=== PATIENT | female | born 2000 | race Caucasian/White ===

== ENCOUNTER → 2020-07-22 18:22 | Outpatient (CLI) | payer OTHER, SELFPAY ==
--- NOTE | 2020-07-22 18:30 | US_ITS ---
HISTORY: VIABILITY LIGHT SPOTTING ADDITIONAL HISTORY: None provided. CLINICAL DATING: LMP 06/05/2020 for sponges 6 weeks 5 days with ANI 03/12/2021 TECHNIQUE: Transvaginal pelvic ultrasound was performed with grayscale, color Doppler and spectral Doppler imaging. COMPARISON: None FINDINGS: Number of images including paperwork: 77 IUP: Single, live intrauterine gestation noted with crown-rump length 0.66 cm corresponding to 6 weeks 4 days estimated gestational age and ANI 03/13/2021. Gestational age by mean sac diameter is concordant. Heart rate 133 bpm. Amniotic fluid volume appears appropriate. Trace subchorionic hemorrhage (images 59/76 and 72/76). UTERUS: Otherwise unremarkable. CERVIX: Unremarkable. OVARIES: Right ovary 3.7 x 1.7 x 2.8 cm. Left ovary 3.1 x 1.8 x 1.5 cm. Flow demonstrated in the ovaries with spectral Doppler evaluation. Right ovarian 1.8 cm corpus luteum. ADNEXA: No mass. FREE FLUID: None. US/Transvaginal w/Preg US IMPRESSION: Single live intrauterine gestation, as detailed. Trace subchorionic hemorrhage. at 2256 Reported and signed by: Naida Napoles MD Electronically Signed: Naida Napoles MD at 22:56 EST Tel , Service support ,
== END ==
LOC: US 18:28
PROVIDERS: PCP Nurse Practitioner Family; Referring Provider Obstetrics & Gynecology; Visit Provider Obstetrics & Gynecology
DX: O20.0 Threatened abortion (principal); Z3A.00 Weeks of gestation of pregnancy not specified
CPT/HCPCS: 36415; 76817; 86850; 86900; 86901

== ENCOUNTER → 2020-08-06 | Outpatient (CLI) | payer OTHER, SELFPAY ==
[2020-08-06 16:04] VITALS: BMI 17.9
[2020-08-06 18:28] LABS: Amphetamine Urine VISTA NEGATIVE (<1000 ng/mL); Barbiturate Urine VISTA NEGATIVE (< 200 ng/mL); Benzodiazepine Urine VISTA NEGATIVE (< 200 ng/mL); Cocaine Urine VISTA NEGATIVE (< 300 ng/mL); Ecstacy Urine VISTA NEGATIVE (< 500 ng/mL); Methadone Urine VISTA NEGATIVE (< 300 ng/mL); PCP Urine VISTA NEGATIVE (< 25 ng/mL); THC Urine VISTA POSITIVE (< 50 ng/mL); Vista UDS pH Range 5
[2020-08-12 20:39] LABS: HPV Reflexed? NOT INDICATED
[2020-09-03 08:46] LABS: Chlamydia By Nucleic Acid AMP POSITIVE; Gonococcus By Nucleic Acid AMP NEGATIVE
== END | disposition home or self-care (01) ==
LOC: LABSPEC 17:21
PROVIDERS: PCP Nurse Practitioner Family; Visit Provider Obstetrics & Gynecology
DX: Z34.90 Encounter for supervision of normal pregnancy, unspecified, unspecified trimester (principal); Z12.4 Encounter for screening for malignant neoplasm of cervix
CPT/HCPCS: 80307; 87086; 87088; 87491; 87591; 88142

== ENCOUNTER → 2020-08-12 10:12 | Outpatient (CLI) | payer OTHER, SELFPAY ==
[2020-08-06 16:04] VITALS: BMI 17.9
[2020-08-12 10:30] VITALS: BP 128/76; PULSE 90; RESP 18; TEMP 36.6; O2SAT 100; BMI 17.9
[2020-08-12] MEDS: Dextrose 5%-Lactated Ringers 1,000 ML 999 ML IV (10:37)
[2020-08-12] MEDS: Ondansetron 4 MG/2 ML Vial IV (10:37)
[2020-08-12 11:57] VITALS: BP 122/72; PULSE 92; RESP 16; TEMP 36.3; O2SAT 99
== END ==
LOC: MEDOUTP 10:13
PROVIDERS: PCP Nurse Practitioner Family; Referring Provider Nurse Practitioner Women's Health; Visit Provider Nurse Practitioner Women's Health
DX: E86.0 Dehydration (principal)
CPT/HCPCS: 96361; 96374; J2405

== ENCOUNTER → 2020-08-13 15:49 | Outpatient (CLI) | payer OTHER, SELFPAY ==
[2020-08-13 15:41] VITALS: BMI 18.6
[2020-08-13 16:18] LABS: Absolute Lymphocyte Count 2.28 X10^3/uL (0.83-4.51); Absolute Neutrophil Count 6.6 X10^3/uL (2.0-7.7); Basophil# 0.02 X10^3/uL; Basophil% 0.2 % (0-1); Eosinophil# 0.02 X10^3/uL; Eosinophils% 0.2 % (0-5); Hematocrit 35.4 % (37-47); Hemoglobin 11.7 g/dL (12.0-15.0); Lymphocyte # 2.28 X10^3/ul (4.0); Lymphocyte % 23.3 % (19-41); Mean Corp Hgb Conc 33.1 g/dL (32-36); Mean Corpuscular Hgb 27.2 pg (27.0-32.0); Mean Corpuscular Volume 82.3 fL (81-99); Mean Platelet Vol. 10.4 fl (6.2-12.0); Monocyte# 0.82 X10^3/uL; Monocyte% 8.4 % (0-10); NRBC Flagged by Analyzer 0 % (0-5); Neutrophil % 67.6 % (47-70); Platelet Count 184 K/mm3 (150-450); RBC Distribution Width CV 13.5 % (11.6-14.6); RBC Distribution Width SD 40.7 fl (35.1-43.9); White Blood Count 9.8 K/mm3 (4.4-11.0)
[2020-08-13 17:00] LABS: Glucose 78 mg/dL (74-106)
[2020-08-13 17:01] LABS: Hemoglobin A1c 5.2 % (3.8-5.6)
[2020-08-14 09:27] LABS: HIV - WCH Non-Reactive (Nonreactive); Hepatitis B Surface Antigen Non-Reactive (Nonreactive); Hepatitis C Antibody Non-Reactive (Nonreactive); Rubella IgG Reactive (Nonreactive)
[2020-08-20 03:02] LABS: Rapid Plasmin Reagin (RPR) NONREACTIVE (NONREACTIVE)
== END ==
PROVIDERS: Obstetrics & Gynecology; PCP Nurse Practitioner Family; Referring Provider Obstetrics & Gynecology; Visit Provider Obstetrics & Gynecology
DX: O99.891 Other specified diseases and conditions complicating pregnancy (principal); Z3A.00 Weeks of gestation of pregnancy not specified; R30.0 Dysuria
CPT/HCPCS: 36415; 82947; 83036; 85025; 86592; 86703; 86762; 86803; 86850; 86900; 86901; 87086; 87340

== ENCOUNTER → 2020-09-01 15:00 | Outpatient (CLI) | payer OTHER, SELFPAY ==
[2020-09-01 14:41] VITALS: BMI 18.6
[2020-09-01 19:29] LABS: Chlamydia Trachomatis by PCR POSITIVE (Negative); Neisserai gonorrhoeae by PCR Negative (Negative); Probe Check PASS; Sample Adequacy Control PASS; Specimen Processing Control PASS
== END ==
LOC: PAVLAB 15:02
PROVIDERS: PCP Nurse Practitioner Family; Referring Provider Nurse Practitioner Women's Health; Visit Provider Nurse Practitioner Women's Health
DX: Z34.81 Encounter for supervision of other normal pregnancy, first trimester (principal)
CPT/HCPCS: 36415; 87491; 87591

== ENCOUNTER 2020-09-15 10:07 | Outpatient (CLI) | payer OTHER, SELFPAY ==
[2020-09-01 14:41] VITALS: BMI 18.6
[2020-09-15 10:20] VITALS: BP 119/53; PULSE 98; RESP 16; TEMP 36.8; O2SAT 100; BMI 18.6
[2020-09-15] MEDS: 0.9% NaCl Peripheral Flush Adult/Peds IV (10:20)
[2020-09-15] MEDS: Dextrose 5%-Lactated Ringers 1,000 ML 999 ML IV (10:20)
[2020-09-15] MEDS: Ondansetron 4 MG/2 ML Vial IV (10:25)
[2020-09-15 11:30] VITALS: BP 110/63; PULSE 90; RESP 16; O2SAT 100
== END 2020-09-15 15:00 ==
LOC: MEDOUTP 10:07
PROVIDERS: PCP Nurse Practitioner Family; Referring Provider Nurse Practitioner Women's Health; Visit Provider Nurse Practitioner Women's Health
DX: E86.0 Dehydration (principal)
CPT/HCPCS: 96361; 96374; A4216; J2405

== ENCOUNTER → 2020-10-02 | Outpatient (CLI) | payer OTHER, SELFPAY ==
[2020-10-02 13:49] VITALS: BMI 19.1
[2020-10-02 19:16] LABS: Chlamydia Trachomatis by PCR Negative (Negative); Neisserai gonorrhoeae by PCR Negative (Negative); Probe Check PASS; Sample Adequacy Control PASS; Specimen Processing Control PASS
== END | disposition home or self-care (01) ==
LOC: LABSPEC 16:15
PROVIDERS: PCP Nurse Practitioner Family; Visit Provider Obstetrics & Gynecology
DX: O98.819 Other maternal infectious and parasitic diseases complicating pregnancy, unspecified trimester (principal); A74.9 Chlamydial infection, unspecified; Z3A.00 Weeks of gestation of pregnancy not specified
CPT/HCPCS: 87491; 87591

== ENCOUNTER 2020-10-09 10:19 | Outpatient (CLI) | payer OTHER, SELFPAY ==
[2020-10-02 13:49] VITALS: BMI 19.1
[2020-10-09 10:45] VITALS: BP 109/64; PULSE 90; RESP 16; TEMP 36.7; O2SAT 98; BMI 19.3
[2020-10-09] MEDS: 0.9% NaCl Peripheral Flush Adult/Peds IV (10:45)
[2020-10-09] MEDS: Dextrose 5%-Lactated Ringers 1,000 ML 999 ML IV (10:50)
[2020-10-09] MEDS: Ondansetron 4 MG/2 ML Vial IV (10:50)
[2020-10-09 12:13] VITALS: BP 105/69; PULSE 89; RESP 16; O2SAT 100
== END 2020-10-09 14:00 | disposition home or self-care (01) ==
LOC: MEDOUTP 10:19
PROVIDERS: PCP Nurse Practitioner Family; Referring Provider Obstetrics & Gynecology; Visit Provider Obstetrics & Gynecology
DX: E86.0 Dehydration (principal)
CPT/HCPCS: 96361; 96374; A4216; J2405

== ENCOUNTER → 2020-11-02 | Outpatient (CLI) | payer OTHER, SELFPAY ==
[2020-11-02 15:07] VITALS: BMI 19.1
[2020-11-02 17:49] LABS: Amphetamine Urine VISTA NEGATIVE (<1000 ng/mL); Barbiturate Urine VISTA NEGATIVE (< 200 ng/mL); Benzodiazepine Urine VISTA NEGATIVE (< 200 ng/mL); Cocaine Urine VISTA NEGATIVE (< 300 ng/mL); Ecstacy Urine VISTA NEGATIVE (< 500 ng/mL); Methadone Urine VISTA NEGATIVE (< 300 ng/mL); PCP Urine VISTA NEGATIVE (< 25 ng/mL); THC Urine VISTA POSITIVE (< 50 ng/mL); Vista UDS pH Range 6
== END | disposition home or self-care (01) ==
LOC: LABSPEC 16:27
PROVIDERS: PCP Nurse Practitioner Family; Referring Provider Nurse Practitioner Women's Health; Visit Provider Nurse Practitioner Women's Health
DX: O99.320 Drug use complicating pregnancy, unspecified trimester (principal); F12.10 Cannabis abuse, uncomplicated; Z3A.00 Weeks of gestation of pregnancy not specified
CPT/HCPCS: 80307

== ENCOUNTER → 2020-11-12 12:12 | Outpatient (CLI) | payer OTHER, SELFPAY ==
[2020-11-12 11:54] VITALS: BMI 19.8
[2020-11-12 13:38] LABS: Glucose Challenge Gest 1H 50g 125 mg/dL (70-140)
[2020-11-12 14:00] LABS: Syphilis Antibodies Non-reactive
== END ==
PROVIDERS: PCP Nurse Practitioner Family; Visit Provider Nurse Practitioner Women's Health
DX: O28.8 Other abnormal findings on antenatal screening of mother (principal); Z3A.22 22 weeks gestation of pregnancy; Z13.1 Encounter for screening for diabetes mellitus
CPT/HCPCS: 36415; 82950; 86780

== ENCOUNTER → 2020-12-18 12:01 | Outpatient (CLI) | payer MEDICAID, SELFPAY ==
[2020-12-18 11:46] VITALS: BMI 19.3
[2020-12-18 12:28] LABS: Absolute Lymphocyte Count 1.49 X10^3/uL (0.83-4.51); Absolute Neutrophil Count 6.7 X10^3/uL (2.0-7.7); Basophil# 0.02 X10^3/uL; Basophil% 0.2 % (0-1); Eosinophil# 0.02 X10^3/uL; Eosinophils% 0.2 % (0-5); Hematocrit 31.9 % (37-47); Hemoglobin 10.2 g/dL (12.0-15.0); Lymphocyte # 1.49 X10^3/ul (0.83-4.51); Lymphocyte % 16.5 % (19-41); Mean Corpuscular Hgb 26.1 pg (27.0-32.0); Mean Corpuscular Volume 81.6 fL (81-99); Mean Platelet Vol. 10.2 fl (6.2-12.0); Monocyte# 0.71 X10^3/uL; Monocyte% 7.9 % (0-10); NRBC Flagged by Analyzer 0 % (0-5); Neutrophil # 6.74 X10^3/uL (2.7-7.7); Neutrophil % 74.6 % (47-70); Platelet Count 176 K/mm3 (150-450); RBC Distribution Width CV 13.5 % (11.6-14.6); RBC Distribution Width SD 39.6 fl (35.1-43.9); Red Blood Count 3.91 M/mm3 (4.2-5.4)
[2020-12-18 12:53] LABS: Glucose Challenge Gest 1H 50g 139 mg/dL (70-140)
== END ==
PROVIDERS: PCP Nurse Practitioner Family; Referring Provider Obstetrics & Gynecology; Visit Provider Obstetrics & Gynecology
DX: O26.892 Other specified pregnancy related conditions, second trimester (principal); Z3A.00 Weeks of gestation of pregnancy not specified
CPT/HCPCS: 36415; 82950; 85025; 86850; 86900; 86901

== ENCOUNTER → 2020-12-23 07:03 | Outpatient (CLI) | payer MEDICAID, SELFPAY ==
[2020-12-18 11:46] VITALS: BMI 19.3
[2020-12-23 08:02] LABS: Glucose GTT-Gestation. Fasting 86 mg/dL (<105)
[2020-12-23 08:43] LABS: Glucose GTT-Gestational 1 Hr 128 mg/dL (<190)
[2020-12-23 09:54] LABS: Glucose GTT-Gestational 2 Hr 110 mg/dL (<165)
[2020-12-23 10:56] LABS: Glucose GTT-Gestational 3 Hr 80 L (<145)
== END ==
PROVIDERS: PCP Nurse Practitioner Family; Referring Provider Obstetrics & Gynecology; Visit Provider Obstetrics & Gynecology
DX: Z34.90 Encounter for supervision of normal pregnancy, unspecified, unspecified trimester (principal)
CPT/HCPCS: 36415; 82951; 82952

== ENCOUNTER → 2021-01-14 | Outpatient (CLI) | payer MEDICAID, SELFPAY ==
[2021-01-14 10:58] VITALS: BMI 19.3
[2021-01-14 15:23] LABS: Amphetamine Urine VISTA NEGATIVE (<1000 ng/mL); Barbiturate Urine VISTA NEGATIVE (< 200 ng/mL); Benzodiazepine Urine VISTA NEGATIVE (< 200 ng/mL); Cocaine Urine VISTA NEGATIVE (< 300 ng/mL); Ecstacy Urine VISTA NEGATIVE (< 500 ng/mL); Methadone Urine VISTA NEGATIVE (< 300 ng/mL); PCP Urine VISTA NEGATIVE (< 25 ng/mL); THC Urine VISTA POSITIVE (< 50 ng/mL); Vista UDS pH Range 6
== END | disposition home or self-care (01) ==
PROVIDERS: PCP Nurse Practitioner Family; Referring Provider Nurse Practitioner Women's Health; Visit Provider Nurse Practitioner Women's Health
DX: O99.323 Drug use complicating pregnancy, third trimester (principal); F12.10 Cannabis abuse, uncomplicated; Z3A.29 29 weeks gestation of pregnancy
CPT/HCPCS: 80307

== ENCOUNTER → 2021-02-05 07:54 | Outpatient (CLI) | payer MEDICAID, SELFPAY ==
[2021-01-29 10:26] VITALS: BMI 19.3
--- NOTE | 2021-02-05 07:55 | US_ITS ---
STUDY: SECOND AND THIRD TRIMESTER OBSTETRICAL ULTRASOUND REASON FOR EXAM: Female, 20 years old uterine date size discrepancy LMP: 06/05/2020. TECHNIQUE: Transabdominal TECHNICAL QUALITY: Adequate. PRIOR ULTRASOUND: Comparison is made with prior study dated 07/22/2020. FINDINGS: There is a single intrauterine fetus. The fetus is in a cephalic presentation. There is demonstrated cardiac activity with a heart rate of 155 bpm. There is a normal amniotic fluid volume. The largest amniotic fluid pocket measures 3.7 cm. The amniotic fluid index (MEGAN) is 8.5 cm. The placenta is fundal in location. There are Grade 2 placental changes. The cervix measures 3 cm in length. The adnexal regions are not visualized. BIOMETRY: BPD: 9.17 cm: 37 weeks, 1 days HC: 32.27 cm: 36 weeks, 3 days AC: 30.14 cm: 34 weeks, 0 days FL: 6.95 cm: 35 weeks, 4 days CI: 86% FL/BPD: 76% FL/HC: FL/AC: 23% HC/AC: 1.07 age by current US: 35 weeks, 3 days. ANI by current US: 03/09/2021. Estimated weight: 2617 grams, +/- 393 grams, 53 %. age by prior US: 34 weeks, 6 days. ANI by prior US: 03/13/2021. Age by LMP: 35 weeks, 0 days. ANI by LMP: 03/12/2021. US/OB Limited With Biometrics IMPRESSION: Single live intrauterine gestation with a mean gestational age of 34 weeks and 6 days. The measurements obtained today fall within normal expected range. Electronically Signed: Babatunde Aleman MD at 9:45 EDT , Service support ,
== END ==
PROVIDERS: PCP Nurse Practitioner Family; Referring Provider Obstetrics & Gynecology; Visit Provider Obstetrics & Gynecology
DX: O26.843 Uterine size-date discrepancy, third trimester (principal)
CPT/HCPCS: 76816

== ENCOUNTER → 2021-02-12 10:33 | Outpatient (CLI) | payer MEDICAID, SELFPAY ==
[2021-01-29 10:26] VITALS: BMI 19.3
[2021-02-12 09:27] VITALS: BMI 19.3
--- NOTE | 2021-02-12 10:35 | US_ITS ---
STUDY: SECOND AND THIRD TRIMESTER OBSTETRICAL ULTRASOUND - LIMITED REASON FOR EXAM: Female, 20 years old check MEGAN LMP: 06/05/2020. PRIOR ULTRASOUND: Comparison is made with prior study dated 02/05/2021. TECHNIQUE: Transabdominal TECHNICAL QUALITY: Adequate. FINDINGS: There is a single intrauterine fetus. The fetus is in a cephalic presentation. There is demonstrated cardiac activity with a heart rate of 150 bpm. There is a normal amniotic fluid volume. The largest amniotic fluid pocket measures 3.9 cm x 4.5 cm. The amniotic fluid index (MEGAN) is 12.2 cm. The placenta is fundal in location. There are Grade 2 placental changes. The cervix measures 3 cm in length. US/OB Limited (No Biometrics) IMPRESSION: Normal amniotic fluid. Electronically Signed: Babatunde Aleman MD at 14:01 EDT , Service support ,
[2021-02-15 05:06] LABS: Chlamydia By Nucleic Acid AMP Negative (Negative)
[2021-02-15 12:39] LABS: Gonococcus By Nucleic Acid AMP Negative (Negative)
== END ==
PROVIDERS: Obstetrics & Gynecology; PCP Nurse Practitioner Family; Referring Provider Obstetrics & Gynecology; Visit Provider Obstetrics & Gynecology
DX: O26.843 Uterine size-date discrepancy, third trimester (principal); Z3A.36 36 weeks gestation of pregnancy; Z11.3 Encounter for screening for infections with a predominantly sexual mode of transmission
CPT/HCPCS: 76815; 87081; 87491; 87591

== ENCOUNTER 2021-03-05 11:13 | Inpatient (IN) | payer MEDICAID, SELFPAY ==
[2021-03-05] VITALS (42 sets, daily range): BP systolic 101–150; BP diastolic 56–99; PULSE 88–145; RESP 16; TEMP 36.5–37.3; O2SAT 83–100; BMI 19.3; BMI 21.3
[2021-03-05] MEDS: Lactated Ringers 1,000 ML 50 ML IV (12:15)
[2021-03-05 12:28] LABS: Absolute Lymphocyte Count 1.42 X10^3/uL (0.83-4.51); Absolute Neutrophil Count 6.9 X10^3/uL (2.0-7.7); Basophil# 0.01 X10^3/uL; Basophil% 0.1 % (0-1); Hematocrit 40.5 % (37-47); Hemoglobin 13.2 g/dL (12.0-15.0); Lymphocyte # 1.42 X10^3/ul (0.83-4.51); Lymphocyte % 15.8 % (19-41); Mean Corp Hgb Conc 32.6 g/dL (32-36); Mean Corpuscular Hgb 27.1 pg (27.0-32.0); Mean Corpuscular Volume 83.2 fL (81-99); Mean Platelet Vol. 10.4 fl (6.2-12.0); Monocyte# 0.64 X10^3/uL; Monocyte% 7.1 % (0-10); NRBC Flagged by Analyzer 0 % (0-5); Neutrophil # 6.89 X10^3/uL (2.7-7.7); Neutrophil % 76.6 % (47-70); Platelet Count 157 K/mm3 (150-450); RBC Distribution Width CV 16.4 % (11.6-14.6); RBC Distribution Width SD 49.8 fl (35.1-43.9); Red Blood Count 4.87 M/mm3 (4.2-5.4)
[2021-03-05] MEDS: Oxytocin 30 units/NS 500 ml 30 UNITS/500 ML IV.SOLN IV (12:45)
[2021-03-05 13:56] LABS: Amphetamine Urine VISTA NEGATIVE (<1000 ng/mL); Barbiturate Urine VISTA NEGATIVE (< 200 ng/mL); Benzodiazepine Urine VISTA NEGATIVE (< 200 ng/mL); Cocaine Urine VISTA NEGATIVE (< 300 ng/mL); Ecstacy Urine VISTA NEGATIVE (< 500 ng/mL); Methadone Urine VISTA NEGATIVE (< 300 ng/mL); PCP Urine VISTA NEGATIVE (< 25 ng/mL); THC Urine VISTA NEGATIVE (< 50 ng/mL); Vista UDS pH Range 6
[2021-03-05] MEDS: Lactated Ringers 500 ML 999 ML IV ×2 (14:43→15:15)
[2021-03-05] MEDS: fentaNYL-bupivacaine (epidural) 100 ML BAG EPIDURAL (15:44)
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
--- NOTE | 2021-03-05 18:17 | OP.PCM_ITS ---
Assessment & Plan (1) Oligohydramnios: (2) : QUALIFIERS: Weeks of gestation: 39 weeks Qualified Code(s): Z3A.39 - 39 weeks gestation of COMMENT: NIPT- low risk male, declines carrier and AFP, NL anatomy scan GBS NEGATIVE (3) Supervision of normal : QUALIFIERS: Normal : normal first Trimester: second trimester Qualified Code(s): Z34.02 - Encounter for supervision of normal first , second trimester COMMENT: PRR ANI 03/12/2021 gianni Russell BF: Davion (4) Rh negative status during : QUALIFIERS: Trimester: second trimester Qualified Code(s): O26.892 - Other specified related conditions, second trimester COMMENT: Had spotting at beginning of , but missed window for RhoGam. Rhogam given 12/18/20 (5) Marijuana abuse: COMMENT: +tox at NOB and 11/02-counseled- needs random tox. 01/14 positive (6) Chlamydia infection affecting : QUALIFIERS: Trimester: second trimester Qualified Code(s): O98.812 - Other maternal infectious and parasitic diseases complicating pre gnancy, second trimester; A74.9 - Chlamydial infection, unspecified COMMENT: + 09/01/20; 10/02 negative (7) Glucosuria: COMMENT: NL 3 hr glucose test (8) Anxiety and depression: COMMENT: zoloft started (9) Anemia: COMMENT: iron supplement (10) Vaginal delivery: COMMENT: SM IOL oligo 39 gianni Russell Maternal Data Information ANI Calculator Estimated Delivery Date Method Current WG Current Estimate 03/12/21 LMP (Certain) 39w 1d Other Estimates 03/12/21 Ultrasound #1 39w 1d Vaginal Delivery Operative Information Date of Procedure: 03/06/21 Pre-Operative Diagnosis: Induction of labor oligohydramnios Post-Operative Diagnosis: same Surgery / Procedure Performed: Spontaneous Vaginal Delivery Type of Anesthesia: Epidural Special Medications: none Estimated Blood Loss: 100 Fluids Replaced: crystalloid Findings Description of Procedure: Patient began pushing and delivered the head in the ANGEL presentation. The head was delivered atraumatically . The anterior and posterior shoulders delivered without complication followed by the rest of the and the was placed on the maternal abdomen. Delayed cord clamping was employed for approximately 60 seconds. Cord was clamped and cut and gentle traction was applied to the cord and the placenta delivered spontaneously immediately following it was noted to be intact with three-vessel cord. The perineum and vagina were inspected and noted to have a small left vaginal first- degree laceration repaired with 3-0 Vicryl Rapide. EBL was 100 cc. Patient and infant tolerated delivery well. Presentation: ANGEL Amniotic Membrane Rupture Type: Artificial Amniotic Fluid Description: Clear Placental Delivery Description: Spontaneous Placenta Disposition: [facility] Cord Vessel Description: 3 Vessels Cord Entanglement: None Infant A Gender: Male Delayed Cord Clamping: Yes Post Vaginal Delivery Medications Given After Delivery: IV Pitocin Episiotomy Description: None Laceration: None Complication Complications: None Procedures Urinary/Genital [id number]: [id number] Vaginal Delivery+ Care([facility])
[2021-03-05] MEDS: Oxytocin 30 units/NS 500 ml 30 UNITS/500 ML IV.SOLN 334 UNITS IV (19:16)
--- NOTE | 2021-03-06 00:22 | PCM.DC ---
Discharge Instructions Diet Discharge Diet: No restrictions Activity Discharge Activity: Return to Normal Activity, May Not Drive (while taking narcotic pain medications.) and May Shower May resume sexual activity in: 4-6 weeks Dressing / Incision Call your doctor if your incision/area has: Continuous Slow Oozing, Sudden Increased Bleeding, Increased Pain/ Swelling, Increased Redness and Foul Smelling Discharge Follow Up Care Please Follow Up With: Viri Fried MD When: Call [phone] to make an appointment with your doctor in 6 weeks. If you had elevated blood pressure or 4th degree laceration, you will need to be seen in 2 weeks. Test Results: Test results from this visit will be discussed in further detail at your follow-up appointment, if applicable. Discharge Plan Admission Admit Date/Time: 03/05/21 11:13 Primary Reason for Your Visit: Vaginal delivery Attending Provider: Viri Fried Primary Care Provider: Aissatou Yost NP Discharge Orders/Prescriptions Prescriptions: New naproxen 250 MG tablet 250 - 500 mg PO Q8H PRN PRN (Reason: MILD PAIN) Qty: 30 RF: 1 Continued PNV-DHA 27 mg iron-1 mg -300 mg capsule 1 cap PO RF: 0 sertraline [Zoloft] 50 mg tablet 50 mg PO DAILY RF: 0 Referrals / Follow Up: Aissatou Yost NP, [employer] [Primary Care Provider] -
[2021-03-06] MEDS: Naproxen 500 MG Tablet PO ×2 (01:52→20:39)
[2021-03-06 04:17] VITALS: BP 135/80; PULSE 108; RESP 16; TEMP 36.3
[2021-03-06 08:23] VITALS: BP 116/70; PULSE 87; RESP 16; TEMP 36.8
[2021-03-06] MEDS: Sertraline 50 MG Tablet PO (08:28)
--- NOTE | 2021-03-06 09:47 | PCM.PN.OB ---
Subjective Subjective Patient doing well without complaints. Tolerating PO. Ambulating and voiding without difficulty. Breast feeding well. Denies chest pain, shortness of breath, calf pain/swelling, fevers, chills, lightheadedness. Objective Data Objective Data Vital Signs: Vital Signs Temp Pulse Resp BP Pulse Ox 98.3 F 87 16 116/70 97 03/06/21 08:23 03/06/21 08:23 03/06/21 08:23 03/06/21 08:23 03/05/21 20:10 Oxygen Delivery Method Room Air Weight: 132 lb Body Mass Index (BMI) 21.3 Intake & Output: Intake and Output for Last 24 Hours 03/04/21 03/05/21 03/06/21 23:59 23:59 23:59 Intake Total 2515.17 / 2515.17 Output Total 900 / 900 400 / 400 Balance 1615.17 / 1615.17 -400 / -400 Lab / Micro Data Result Diagrams: 03/05/21 12:15 Labs: Laboratory Results - last 24 hr 03/05/21 12:15: WBC 9.0, RBC 4.87, Hgb 13.2, Hct 40.5, MCV 83.2, MCH 27.1, MCHC 32.6, RDW Std Deviation 49.8 H, RDW Coeff of Carina 16.4 H, Plt Count 157, MPV 10.4, Immature Gran % (Auto) 0.400, Neut % (Auto) 76.6 H, Lymph % (Auto) 15.8 L, [place] % (Auto) 7.1, Eos % (Auto) 0.0, Baso % (Auto) 0.1, Absolute Neuts (auto) 6.9, Absolute Lymphs (auto) 1.42, Nucleated RBC % 0 03/05/21 12:15: Blood Type O NEGATIVE, Antibody Screen NEGATIVE 03/05/21 13:35: Urine Opiates Screen NEGATIVE, Urine Methadone Screen NEGATIVE, Ur Barbiturates Screen NEGATIVE, Ur Phencyclidine Scrn NEGATIVE, Ur Amphetamines Screen NEGATIVE, U Methamphetamin-MDMA NEGATIVE, U Benzodiazepines Scrn NEGATIVE, Urine Cocaine Screen NEGATIVE, U Cannabinoids Screen NEGATIVE, Ur Drug Screen Comment 03/06/21 04:14: Screen NEGATIVE, Baby's Blood Type A POSITIVE, Baby's KIESHA NEGATIVE Micro: Microbiology 03/05/21 12:15 Mucosa - Nose SARS-CoV-2 Antigen (Rapid) - Final ROS Constitutional Constitutional: Denies fever(s) Cardiovascular Cardiovascular: Denies chest pain, dyspnea or lightheadedness Gastrointestinal Gastrointestinal: Reports abdominal pain; Denies constipation or diarrhea Neurologic Neurologic: Denies dizziness or headache(s) Physical Exam Const alert, oriented x3, no apparent distress, average body habitus, healthy appearing and well nourished HEENT normocephalic Head and Scalp: atraumatic Eyes PERRL and EOMs intact bilaterally Neck full ROM Lymph Lymphatic: no lymphadenopathy noted Resp normal respiratory effort, no retractions and no use of accessory muscles Cardio regular rate GI soft to palpation, non-tender and non-distended Palpation: other Other Details: fundus firm Extremity normal to inspection and no clubbing, cyanosis or edema Skin no rashes or lesions noted Neuro no focal motor deficits and no sensory deficits noted Psych mental status grossly normal, affect normal and speech normal Assessment & Plan (1) Vaginal delivery: COMMENT: IOL oligo 39 boy Drew PLAN: s/p PPD # 1 1. routine post delivery care 2. breast feeding- support given 3. rh positive 4. rubella immune
[2021-03-06 11:12] VITALS: BP 118/58; PULSE 87; RESP 16; TEMP 36.4
[2021-03-06 15:36] VITALS: BP 131/72; PULSE 100; RESP 16; TEMP 36.6
--- NOTE | 2021-03-06 17:51 | CASEMGMT ---
Addendum entered by Jaqueline Sauceda 03/06/21 18:35: Patient/MOB tested positive for marijuana 09/01/20,11/02/20 and 01/14/21during her . Jaqueline MENDEZ Addendum entered by Jaqueline Sauceda 03/06/21 18:35: SW met with patient and FOB. Discussed concerns about marijuana smoke and the dangers to children, especially with RSV. Patient and FOB verbalized understanding. SW provided patient and FOB with information on AOD treatment from [facility]. Patient and FOB indicated that there plan is not to smoke marijuana and this mortgage underwriter educated about dangers of secondhand smoke. SW also provided handout from [facility] on Secondhand smoke and kids. Advised at this time [facility] was not going to take a report but if the mec came back positive. [facility] MAICLO Nava had asked this mortgage underwriter if the screw down will have information about the MOB testing positive during and Nakul Georges RN, said that the screw down will have access to 's chart which document this information. KHADAR Saini, said that patient has also been educated on marijuana use in regards to . No further SW needs at this time. SW remains available. Plan: Home with [facility] Jaqueline MENDEZ Original Note: MAICOL Note SW Referral Source: MD MILIAN referral Reason, History of anxiety and depression, Positive tox screen for marijuana 3x during the . Mom: Akhil Benitez 21 year old EDC 03[birth year] 39 weeks G1 P 1 PNC: [place] control: Control Pill Baby: Drew MEJIA 03/05/21 Apgars 8/9 Weight 6# 9 ounces Pediatrican: [facility]. Appt Monday at 9am per patient Breast feeding for a few weeks and then bottle feed. Mother reports that patient is latching well but reports he likes one breast more than the other and he's being a pain. No other children Housing: Patient, FOB and will reside in a home Transportation: Patient reports that her fiance'/FOB drives but she doesn't as I am too scared. Patient said that she has a car. Supplies: Patient reports she has a baby has a carseat, bassinet (with firm mattress) and pack n play and all supplies. Supports: Patient said that her support will be her mom (who was on the phone with patient while this mortgage underwriter spoke to patient and when this mortgage underwriter noted that patient's mother was on the phone SW asked patient if it was ok to speak in her mothers presence and patient gave consent to speak in the presence of her mother). Patient said that her fiance/FOB, maternal grandmother, paternal grandmother and maternal great grandmother will be available. Patient said that the paternal grandmother resides in [place] and the maternal grandmother and great grandmother reside in [place], [place]. Education Level: Patient reports she graduated from high school and had some learning disabilities. Patient reports no issues with reading and writing. Employment: Patient is not employed. She previously worked at [employer] in [place]. She reports that she plans to obtain a job closer to home. Patient said that when she works her grandmother Mike will watch the . Agency Involvement: Patient is currently linked with Medicaid, Food [place] and WIC FOB: [place] Time Together: 11 months Involved at : FOB will be involved at . He was noted to be in the room with the . Staff noted that FOB was appropriate in caring for the . Employment: Patient works at [employer] FOB has no other children . FOB MH/AOD/Domestic Violence History: Patient reports no history Maternal MH history. Patient reports that she has never had counseling, suicidal ideations or psychiatric hospitalization. She reports she is taking zoloft, which per her chart she started at 30 weeks. Patient said that taking zoloft she is doing good and plans to continue to take the medication. Patient said that she feels she has more depression than anxiety. No current SI. Patient said that she is comfortable taking the home. Patient was educated on Shaken Baby, Post Depression and Safe Sleeping. Patient reports she used marijuana during her but her plan is to quit. Patient reports no continued drug use and was educated on the effects of smoke and drugs around the . On 03/05/21 patient and were negative on their tox screen. Mec is pending. KHADAR Saini stated that patient is doing ok and wants to learn. Father is involved with the and supportive. SW spoke to patient's mother and asked if she had any concerns regarding the and grandmother said she will be a good mom. SW offered FOB and patient a referral to [facility] and they both were in agreement. FOB said we will take all the help we can get. SW called Kallie Nava at [facility]. SW made report. She said that at this time they will screen out the report however, if there is any additional information or concerns to contact them. She said that if the mec comes back positive to contact [facility]. SW made referral to [facility] on line. SW provided patient with handouts on Mom of [place] and Depression, Anxiety and Depression and a contact number, Safe sleep handout, [facility] Handout, Depression During and After Pregancy Handout, On Line Resource for Post Mood and anxiety, 10 facts about Depression and anxiety during and post Republican, List of counseling resources and information on PPD and and Post Depression with symptoms. SW will continue to watch for mec results. Plan: Home with [facility] Referral. [facility] screened out a referral. Jaqueline MENDEZ
[2021-03-06 20:32] VITALS: BP 131/72; PULSE 94; RESP 16; TEMP 36.8
[2021-03-07 02:03] VITALS: BP 120/73; PULSE 78; RESP 16; TEMP 36.6
[2021-03-07 08:00] VITALS: BP 111/61; PULSE 81; RESP 16; TEMP 36.3
[2021-03-07] MEDS: Sertraline 50 MG Tablet PO (08:06)
--- NOTE | 2021-03-07 10:25 | PCM.PN.OB ---
Subjective Subjective Patient doing well without complaints. Tolerating PO. Ambulating and voiding without difficulty. Breast feeding well. Denies chest pain, shortness of breath, calf pain/swelling, fevers, chills, lightheadedness. Objective Data Objective Data Vital Signs: Vital Signs Temp Pulse Resp BP Pulse Ox 97.3 F L 81 16 111/61 97 03/07/21 08:00 03/07/21 08:00 03/07/21 08:00 03/07/21 08:00 03/05/21 20:10 Oxygen Delivery Method Room Air Weight: 132 lb Body Mass Index (BMI) 21.3 Intake & Output: Intake and Output for Last 24 Hours 03/05/21 03/06/21 03/07/21 23:59 23:59 23:59 Intake Total 2515.17 / 2515.17 Output Total 900 / 900 400 / 400 Balance 1615.17 / 1615.17 -400 / -400 Lab / Micro Data Result Diagrams: 03/05/21 12:15 Micro: Microbiology 03/05/21 12:15 Mucosa - Nose SARS-CoV-2 Antigen (Rapid) - Final ROS Constitutional Constitutional: Denies fever(s) Cardiovascular Cardiovascular: Denies chest pain, dyspnea or lightheadedness Gastrointestinal Gastrointestinal: Reports abdominal pain; Denies constipation or diarrhea Neurologic Neurologic: Denies dizziness or headache(s) Physical Exam Const alert, oriented x3, no apparent distress, average body habitus, healthy appearing and well nourished HEENT normocephalic Head and Scalp: atraumatic Eyes PERRL and EOMs intact bilaterally Neck full ROM Lymph Lymphatic: no lymphadenopathy noted Resp normal respiratory effort, no retractions and no use of accessory muscles Cardio regular rate GI soft to palpation, non-tender and non-distended Palpation: other Other Details: fundus firm Extremity normal to inspection and no clubbing, cyanosis or edema Skin no rashes or lesions noted Neuro no focal motor deficits and no sensory deficits noted Psych mental status grossly normal, affect normal and speech normal Assessment & Plan (1) Vaginal delivery: COMMENT: SM IOL oligo 39 boy Drew PLAN: s/p PPD # 2 1. routine post delivery care 2. breast feeding- support given 3. rh positive 4. rubella immune
[2021-03-07 11:58] VITALS: BP 109/71; PULSE 93; RESP 16; TEMP 36.6
--- NOTE | 2021-04-13 10:22 | CASEMGMT ---
MAICOL Note: Referral Source: [employer] Advertising Representative Referral Reason; NB positive for marijuana in meconium MAICOL was advised by email that patient's tox for meconium. MAICOL called [facility] [phone] and spoke to Ilda in intake. MAICOL updated that this tag writer had follow up information that tested positive for marijuana in meconium. Ilda advised she would follow up to appropriate individual. No further SW needs at this time. Jaqueline MENDEZ
== END 2021-03-07 12:30 | disposition home or self-care (01) | DRG 560 ==
PROVIDERS: Admitting Provider Obstetrics & Gynecology; PCP Nurse Practitioner Family; Visit Provider Obstetrics & Gynecology
DX: O41.03X0 Oligohydramnios, third trimester, not applicable or unspecified (principal); O99.02 Anemia complicating childbirth; D64.9 Anemia, unspecified; O36.0120 Maternal care for anti-D [Rh] antibodies, second trimester, not applicable or unspecified; O98.812 Other maternal infectious and parasitic diseases complicating pregnancy, second trimester; A74.9 Chlamydial infection, unspecified; O99.344 Other mental disorders complicating childbirth; F32.9 Major depressive disorder, single episode, unspecified; F41.9 Anxiety disorder, unspecified; O99.324 Drug use complicating childbirth; F12.10 Cannabis abuse, uncomplicated; O70.0 First degree perineal laceration during delivery; Z3A.39 39 weeks gestation of pregnancy; Z37.0 Single live birth; Z87.891 Personal history of nicotine dependence
CPT/HCPCS: 59025; 59050; 80307; 85025; 85461; 86850; 86900; 86901; 87426; 90384; 99218; J7120; G0378; J2790

== ENCOUNTER → 2022-03-08 | Outpatient (CLI) | payer MEDICAID, SELFPAY ==
[2022-03-08 16:09] LABS: hCG Titer Quant., Serum 274 mIU/mL (1-3)
== END | disposition home or self-care (01) ==
LOC: PAVLAB 15:25
PROVIDERS: PCP Nurse Practitioner Family; Referring Provider Obstetrics & Gynecology; Visit Provider Obstetrics & Gynecology
DX: N91.2 Amenorrhea, unspecified (principal)
CPT/HCPCS: 36415; 84702

== ENCOUNTER 2022-09-08 14:04 | Emergency (ER) | payer OTHER, MEDICAID, SELFPAY ==
[2022-09-08 14:05] VITALS: BP 136/70; PULSE 79; RESP 16; TEMP 36.8; O2SAT 100; BMI 20.9
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
[2022-09-08] MEDS: Dicyclomine 10 MG Capsule 20 MG PO (16:32)
[2022-09-08] MEDS: Mag Hydrox/Al Hydrox/Simeth 30 ML UDC PO (16:32)
[2022-09-08 16:35] LABS: Absolute Lymphocyte Count 2.32 X10^3/uL (0.83-4.51); Absolute Neutrophil Count 3.1 X10^3/uL (2.0-7.7); Basophil# 0.03 X10^3/uL; Basophil% 0.5 % (0-1); Eosinophil# 0.02 X10^3/uL; Eosinophils% 0.3 % (0-5); Hematocrit 41.3 % (37-47); Hemoglobin 14.2 g/dL (12.0-15.0); Lymphocyte # 2.32 X10^3/ul (0.83-4.51); Lymphocyte % 38.9 % (19-41); Mean Corp Hgb Conc 34.4 g/dL (32-36); Mean Corpuscular Hgb 27.8 pg (27.0-32.0); Mean Corpuscular Volume 80.8 fL (81-99); Mean Platelet Vol. 10.7 fl (6.2-12.0); Monocyte# 0.51 X10^3/uL; Monocyte% 8.5 % (0-10); NRBC Flagged by Analyzer 0 % (0-5); Neutrophil # 3.08 X10^3/uL (2.7-7.7); Neutrophil % 51.6 % (47-70); Platelet Count 175 K/mm3 (150-450); RBC Distribution Width CV 13.3 % (11.6-14.6); Red Blood Count 5.11 M/mm3 (4.2-5.4)
[2022-09-08 16:55] LABS: Internal QC Validated? YES +Cl - CLEAR BKGD; Pregnancy, Serum, hCG Quali. NEGATIVE Negative
[2022-09-08 17:03] LABS: ALB/GLOB Ratio 1.3 RATIO (0.9-2.4); AST(SGOT) 19 U/L (15-37); Alanine Aminotransfer ALT/SGPT 16 U/L (13-56); Albumin, Serum 4.3 g/dL (3.2-5.0); Alkaline Phosphatase 70 U/L (45-117); Anion Gap 9 (5-15); BUN 6 mg/dL (7-18); BUN/Creat Ratio 6.7 RATIO (10-20); Chloride 107 mmol/L (98-107); EST Glomerular Filtration Rate 83 mL/min (>60); Est Glom Filt Rate - Afr Amer 100 mL/min (>60); Globulin 3.4 g/dL (2.2-4.2); Glucose 90 mg/dL (74-106); Lipase 130 U/L (73-393); Potassium 3.4 mmol/L (3.5-5.1); Protein, Total 7.7 g/dL (6.4-8.2); Sodium Level 141 mmol/L (136-145)
== END 2022-09-08 18:00 | disposition home or self-care (01) ==
PROVIDERS: Emergency Provider Emergency Medicine; PCP Registered Nurse; Visit Provider Emergency Medicine
DX: R10.13 Epigastric pain (principal)
CPT/HCPCS: 80053; 83690; 84703; 85025; 99283

== ENCOUNTER → 2022-10-24 | Outpatient (CLI) | payer OTHER, MEDICAID, SELFPAY ==
[2022-11-01 12:23] LABS: HPV Reflexed? NOT INDICATED
== END | disposition home or self-care (01) ==
LOC: LABSPEC 16:19
PROVIDERS: PCP Registered Nurse; Referring Provider Obstetrics & Gynecology; Visit Provider Obstetrics & Gynecology
DX: Z12.4 Encounter for screening for malignant neoplasm of cervix (principal)
CPT/HCPCS: 88175; G0145